=== PATIENT | male | born 1975 | race American Indian/Alaskan Native ===

== ENCOUNTER 2020-07-22 14:11 | Emergency (ER) | payer OTHER ==
[2020-07-22 14:23] VITALS: BP 131/93
[2020-07-22] MEDS ORDERED: SODIUM CHLORIDE 0.9% 1000 ML 1,000 ML IV ONE (14:31)
[2020-07-22] MEDS ORDERED: MORPHINE 4 MG/1 ML INJ IV ONE (14:31)
[2020-07-22] MEDS ORDERED: ONDANSETRON 4 MG/2 ML INJ IV ONE (14:31)
--- NOTE | 2020-07-22 14:34 | Emergency Department Report ---
ED Abdominal Pain HPI - General Chief Complaint: Abdominal Pain Stated Complaint: STOMACH PAIN Time Seen by Provider: 07/22/20 14:28 Source: patient Mode of arrival: Wheelchair Limitations: No Limitations - History of Present Illness Initial Comments: pt is a 44-year-old male presents emergency room with complaints of sudden onset of lower abdominal pain that began 4 hours prior to arrival. He states he had a normal bowel movement this morning. He denies any nausea, vomiting, diarrhea, hematochezia, melena, hematemesis, urinary symptoms, pain or swelling in the testicles. He denies ever having this in the past. He denies any past abdominal surgical history. No past medical history. No allergies to medications. - Related Data Previous Rx's Medication Instructions Recorded Last Taken Type Famotidine [Pepcid] 40 mg PO QHS #30 tablet 07/22/20 Unknown Rx Ketorolac [Toradol] 10 mg PO Q6H PRN #7 tablet 07/22/20 Unknown Rx Ondansetron [Zofran Odt] 4 mg PO Q8HR PRN #10 tab.rapdis 07/22/20 Unknown Rx Sucralfate [Carafate] 1 gm PO ACHS 7 Days #21 tablet 07/22/20 Unknown Rx Tamsulosin [Flomax] 0.4 mg PO QDAY #7 cap 07/22/20 Unknown Rx traMADoL [Ultram 50 MG tab] 50 mg PO Q6HR PRN #7 tablet 07/22/20 Unknown Rx Allergies Allergy/AdvReac Type Severity Reaction Status Date / Time No Known Allergies Allergy Unverified 07/22/20 14:23 ED Review of Systems ROS: Stated complaint: STOMACH PAIN Other details as noted in HPI Comment: All other systems reviewed and negative ED Past Medical Hx - Past Medical History Previous Medical History?: No - Social History Smoking Status: Never Smoker Substance Use Type: None - Medications Home Medications: Home Medications Medication Instructions Recorded Confirmed Last Taken Type Famotidine [Pepcid] 40 mg PO QHS #30 tablet 07/22/20 Unknown Rx Ketorolac [Toradol] 10 mg PO Q6H PRN #7 tablet 07/22/20 Unknown Rx Ondansetron [Zofran Odt] 4 mg PO Q8HR PRN #10 tab.rapdis 07/22/20 Unknown Rx Sucralfate [Carafate] 1 gm PO ACHS 7 Days #21 tablet 07/22/20 Unknown Rx Tamsulosin [Flomax] 0.4 mg PO QDAY #7 cap 07/22/20 Unknown Rx traMADoL [Ultram 50 MG tab] 50 mg PO Q6HR PRN #7 tablet 07/22/20 Unknown Rx ED Physical Exam - General Limitations: No Limitations General appearance: alert, in no apparent distress - Head Head exam: Present: atraumatic, normocephalic - Eye Eye exam: Present: normal appearance - ENT ENT exam: Present: mucous membranes moist - Respiratory Respiratory exam: Present: normal lung sounds bilaterally. Absent: respiratory distress, wheezes, rales, rhonchi, stridor, chest wall tenderness, accessory muscle use, decreased breath sounds, prolonged expiratory - Cardiovascular Cardiovascular Exam: Present: regular rate, normal rhythm, normal heart sounds. Absent: systolic murmur, diastolic murmur, rubs, gallop - GI/Abdominal GI/Abdominal exam: Present: soft, tenderness (mid lower and LLQ), guarding (voluntary), normal bowel sounds. Absent: distended, rebound, rigid - Neurological Exam Neurological exam: Present: alert, oriented X3 - Psychiatric Psychiatric exam: Present: normal affect, normal mood - Skin Skin exam: Present: warm, dry, intact ED Course Vital Signs 07/22/20 07/22/20 14:19 14:42 Temperature 98.2 F Pulse Rate 99 H Respiratory 16 18 Rate Blood Pressure 131/93 O2 Sat by Pulse 100 Oximetry ED Medical Decision Making - Lab Data Result diagrams: 07/22/20 14:32 07/22/20 14:32 - Radiology Data Radiology results: report reviewed Ordering Physician: ROSALBA JARRELL Date of Service: 07/22/20 Procedure(s): CT abdomen pelvis w con Accession Number(s): [id number] cc: ROSALBA JARRELL CT ABDOMEN AND PELVIS WITH IV CONTRAST INDICATION: Diffuse abdominal pain. COMPARISON: None available. TECHNIQUE: All CT scans at this facility use dose modulation, automated exposure control, iterative reconstruction or weight based dosing, when appropriate, to reduce radiation dose to as low as reasonably achievable. FINDINGS: Lung Bases: No significant abnormality. Skeletal System: No acute abnormality. ABDOMEN: Liver: No significant abnormality. Gallbladder: No significant abnormality. Bile Ducts: No significant abnormality. Pancreas: No significant abnormality. Spleen: No significant abnormality. Adrenals: No significant abnormality. Right Kidney: No significant abnormality. The presence of contrast in the collecting system limits evaluation for nephrolithiasis. Left Kidney: There is a 2 mm obstructing stone in the distal left ureter on series 3 image 156. This results in mild left hydronephrosis. There is delayed contrast uptake in the left kidney and significant left perinephric fluid. Upper GI tract: There is gastric antral wall thickening, primarily along the anterior aspect. Stomach is mildly distended. Lymph Nodes: No significant adenopathy. Aorta: No significant abnormality. Additional Findings: No significant abnormality. PELVIS: Colon: No acute abnormality. Urinary Bladder and Distal Ureters: No significant abnormality. Appendix: No significant abnormality. Lymph Nodes: No significant adenopathy. Additional Findings: None. IMPRESSION: 1. 2 mm obstructing stone in the distal left ureter with mild left hydronephrosis. There is significant left perinephric fluid. Secondary to the obstruction. Contrast within the collecting systems limits evaluation for intrarenal stones bilaterally. I cannot exclude left pyelonephritis due to delayed timing of the contrast. 2. Gastric antral wall thickening which is somewhat asymmetric. This could be seen in the setting of gastritis. I do not see a gastric ulcer. Follow-up endoscopy should be considered. Signer Name: Marcelo Ramsey MD Signed: 07/22/2020 4:50 PM Workstation Name: [id number] Transcribed By: LATISHA Dictated By: Marcelo Ramsey MD Electronically Authenticated By: Marcelo Ramsey MD Signed Date/Time: 07/22/201649 DD/ 44 TD/TT: - Medical Decision Making pt is a 44-year-old male presents emergency room with complaints of sudden onset of lower abdominal pain that began 4 hours prior to arrival. He states he had a normal bowel movement this morning. He denies any nausea, vomiting, diarrhea, hematochezia, melena, hematemesis, urinary symptoms, pain or swelling in the testicles. He denies ever having this in the past. He denies any past abdominal surgical history. No past medical history. No allergies to medications. Vitals are stable. On exam patient has mid lower and left lower quadrant abdominal tenderness on exam, voluntary guarding, no rebound, no r igidity, normal bowel sounds, no peritoneal signs. Labs are stable. CT abdomen pelvis with IV contrast 1. 2 mm obstructing stone in the distal left ureter with mild left hydronephrosis. There is significant left perinephric fluid. Secondary to the obstruction. Contrast within the collecting systems limits evaluation for intrarenal stones bilaterally. I cannot exclude left pyelonephritis due to delayed timing of the contrast. 2. Gastric antral wall thickening which is somewhat asymmetric. This could be seen in the setting of gastritis. I do not see a gastric ulcer. Follow-up endoscopy should be considered. Symptoms likely related to nephrolithiasis and gastritis. Do not suspect pyelonephritis as patient is not having any urinary symptoms, no fever, no white count. Patient given medications while in the emergency department and symptoms completely improved and he is feeling much better and ready to go home. Discussed all results with patient answered questions. Patient will be r eferred to urology and GI. Patient given prescription for Flomax, Toradol, tramadol, Zofran, Pepcid, Carafate. Advised patient please take medication as prescribed. Increase your water intake. Follow-up with a urologist. Follow-up with a GI doctor. Follow-up with your primary care doctor. Return to emergency room for new or worsening symptoms. - Differential Diagnosis Colitis, diverticulitis, obstruction, mass, perforation, nephrolithiasis Critical care attestation.: If time is entered above; I have spent that time in minutes in the direct care of this critically ill patient, excluding procedure time. ED Disposition Clinical Impression: Nephrolithiasis Gastritis Qualifiers: Gastritis type: unspecified gastritis Chronicity: acute Gastritis bleeding: without bleeding Qualified Code(s): K29.00 - Acute gastritis without bleeding Hydronephrosis Qualifiers: Hydronephrosis type: unspecified Qualified Code(s): N13.30 - Unspecified hydronephrosis Disposition: DC- TO HOME OR SELFCARE Is pt being admited?: No Does the pt Need Aspirin: No Condition: Stable Instructions: Gastritis, Adult, [id number], Kidney Stones Additional Instructions: Please take medication as prescribed. Increase your water intake. Follow-up with a urologist. Follow-up with a GI doctor. Follow-up with your primary care doctor. Return to emergency room for new or worsening symptoms. Prescriptions: Famotidine [Pepcid] 40 mg PO QHS #30 tablet Sucralfate [Carafate] 1 gm PO ACHS 7 Days #21 tablet Tamsulosin [Flomax] 0.4 mg PO QDAY #7 cap Ketorolac [Toradol] 10 mg PO Q6H PRN #7 tablet PRN Reason: Pain, Moderate (4-6) traMADoL [Ultram 50 MG tab] 50 mg PO Q6HR PRN #7 tablet PRN Reason: Pain , Severe (7-10) Ondansetron [Zofran Odt] 4 mg PO Q8HR PRN #10 tab.rapdis PRN Reason: nausea vomiting Referrals: RENATA TAY MD [Staff Physician] - 2-3 Days [facility] [Provider Group] - 2-3 Days your, primary care doctor [Other] - 2-3 Days Time of Disposition: 17:04 Print Language: IRAQI
[2020-07-22 14:50] LABS: Basophils % (Auto) 0.3 % (0.0-1.8); Eosinophils % (Auto) 0.2 % (0.0-4.3); Hematocrit 47.8 % (35.5-45.6); Hemoglobin 16.2 gm/dl (11.8-15.2); Lymphocytes # (Auto) 1.1 K/mm3 (1.2-5.4); Lymphocytes % (Auto) 10.9 % (13.4-35.0); Mean Corpuscular HGB Conc 34 % (32-34); Mean Corpuscular Volume 83 fl (84-94); Monocytes # (Auto) 0.5 K/mm3 (0.0-0.8); Monocytes % (Auto) 4.9 % (0.0-7.3); Platelet Count 218 K/mm3 (140-440); Red Blood Count 5.76 M/mm3 (3.65-5.03); Red Cell Distribution Width 13.7 % (13.2-15.2)
[2020-07-22 15:19] LABS: Alanine Aminotransferase 36 units/L (7-56); Albumin 4.8 g/dL (3.9-5); BUN/Creatinine Ratio 12; Blood Urea Nitrogen 14 mg/dL (9-20); Calcium 8.9 mg/dL (8.4-10.2); Hemolysis Index 9
[2020-07-22] MEDS ORDERED: HYDROmorphone 1 MG/1 ML INJ IV ONE (15:50)
--- NOTE | 2020-07-22 16:54 | Cat Scan Report ---
CT ABDOMEN AND PELVIS WITH IV CONTRAST INDICATION: Diffuse abdominal pain. COMPARISON: None available. TECHNIQUE: All CT scans at this facility use dose modulation, automated exposure control, iterative reconstructi on or weight based dosing, when appropriate, to reduce radiation dose to as low as reasonably achieva ble. FINDINGS: Lung Bases: No significant abnormality. Skeletal System: No acute abnormality. ABDOMEN: Liver: No significant abnormality. Gallbladder: No significant abnormality. Bile Ducts: No significant abnormality. Pancreas: No significant abnormality. Spleen: No significant abnormality. Adrenals: No significant abnormality. Right Kidney: No significant abnormality. The presence of contrast in the collecting system limits ev aluation for nephrolithiasis. Left Kidney: There is a 2 mm obstructing stone in the distal left ureter on series 3 image 156. This results in mild left hydronephrosis. There is delayed contrast uptake in the left kidney and signific ant left perinephric fluid. Upper GI tract: There is gastric antral wall thickening, primarily along the anterior aspect. Stomach is mildly distended. Lymph Nodes: No significant adenopathy. Aorta: No significant abnormality. Additional Findings: No significant abnormality. PELVIS: Colon: No acute abnormality. Urinary Bladder and Distal Ureters: No significant abnormality. Appendix: No significant abnormality. Lymph Nodes: No significant adenopathy. Additional Findings: None. IMPRESSION: 1. 2 mm obstructing stone in the distal left ureter with mild left hydronephrosis. There is signific ant left perinephric fluid. Secondary to the obstruction. Contrast within the collecting systems limi ts evaluation for intrarenal stones bilaterally. I cannot exclude left pyelonephritis due to delayed timing of the contrast. 2. Gastric antral wall thickening which is somewhat asymmetric. This could be seen in the setting of gastritis. I do not see a gastric ulcer. Follow-up endoscopy should be considered. Signer Name: Marcelo Ramsey MD Signed: 07/22/2020 4:50 PM Workstation Name: [id number]
[2020-07-22] MEDS: KETOROLAC 30 MG/1 ML INJ IV ONE ×2 (17:37→17:48)
== END 2020-07-22 17:49 | disposition home or self-care (01) ==
LOC: ED 14:11
DX: N20.0 Calculus of kidney (principal); K29.70 Gastritis, unspecified, without bleeding; N13.30 Unspecified hydronephrosis; Z79.899 Other long term (current) drug therapy
CPT/HCPCS: 36415; 74177; 80053; 83690; 85025; 96361; 96374; 96375; 99284; J1885; J2270; J2405; J7030; Q9967